=== PATIENT | female | born 1965 | race Caucasian/White ===

== ENCOUNTER 2017-08-26 08:18 | Day surgery (SDC) | payer BC, MEDICAID ==
[~2017-08-26 08:18] MED LIST: DEXTROSE 5%-1/2 NORMAL SALINE 1,000 ML IV PRN; LIDOCAINE 0.5% INJ-PF (5 MG/ML) 50 ML SDV SUBCUT PRN
[2017-08-26 09:02] LABS: ABSOLUTE BASOPHILS # (AUTO) 0.1 10^3/uL (0.0-0.2); ABSOLUTE EOSINOPHILS # (AUTO) 0.1 10^3/uL (0.0-0.6); ABSOLUTE LYMPHOCYTES (AUTO) 2.8 10^3/uL (0.5-4.7); ABSOLUTE MONOCYTES (AUTO) 0.5 10^3/uL (0.1-1.4); BASOPHILS % (AUTO) 0.6 % (0-2); EOSINOPHILS % (AUTO) 1.2 % (0-6); HEMATOCRIT 41.4 % (36.0-47.0); HEMOGLOBIN 13.7 g/dL (12.0-15.5); LYMPHOCYTES % (AUTO) 29.3 % (13-45); MEAN CORPUSCULAR HEMOGLOBIN 29.6 pg (27.0-33.4); MEAN CORPUSCULAR HGB CONC 33.1 g/dL (32.0-36.0); MEAN CORPUSCULAR VOLUME 89 fl (80-97); MONOCYTES % (AUTO) 5.2 % (3-13); PLATELET COUNT 198 10^3/uL (150-450); RED BLOOD COUNT 4.63 10^6/uL (3.72-5.28); RED CELL DISTRIBUTION WIDTH 12.5 % (11.5-14.0); SEGMENTED NEUTROPHILS % (AUTO) 63.7 % (42-78); TOTAL CELLS COUNTED % (AUTO) 100 %; WHITE BLOOD COUNT 9.5 10^3/uL (4.0-10.5)
[2017-08-26] MEDS ORDERED: DIPHENHYDRAMINE HCL 50 MG/ML VIAL IV PRN (09:42)
[2017-08-26] MEDS ORDERED: PROMETHAZINE HCL INJ 25 MG/1 ML VIAL IV PRN ×2 (09:42)
[2017-08-26] MEDS ORDERED: FENTANYL CITRATE INJ/PF 100 MCG/2 ML AMPUL IV PRN ×3 (09:42)
[2017-08-26] MEDS ORDERED: MEPERIDINE HCL/PF INJ 25 MG/1 ML DISP.SYRIN IV PRN (09:42)
[2017-08-26] MEDS ORDERED: OXYCODONE-ACETAMINOPHEN 5-325 MG TABLET PO PRN ×2 (09:42)
[2017-08-26] MEDS ORDERED: MIDAZOLAM 2 MG/2 ML INJ ONE (10:10)
[2017-08-26] MEDS ORDERED: PROPOFOL INJ 200 MG/20 ML VIAL IV ONE (10:10)
[2017-08-26] MEDS ORDERED: SIMETHICONE 80 MG TAB.CHEW PO ONE (12:00)
--- NOTE | 2017-08-26 12:07 | Operative Report ---
Operative Report DATE OF SURGERY: 08/26/17 Operative Report: The risks, benefits and alternatives of the procedure including risks of bleeding, perforation requiring surgery are explained to the patient in detail and informed consent is obtained. Patient was taken back to the operating room and placed in the left, lateral decubital position. Timeout was called. Propofol medications administered. A rectal examination is done which did not reveal any masses, tears or fissures. An Olympus videoscope is introduced into the patient's rectum. The scope was then carefully advanced all the way to the cecum. The cecum was identified by the usual anatomical landmarks including the ileocecal valve as well as the appendiceal office. Photodocumentation is obtained. The scope was then sequentially pulled back via the various segments of the colon including the ascending colon, hepatic flexure, transverse colon, splenic flexure, descending colon and finally into the rectosigmoid portions of the colon. Retroflexion maneuvers performed. PREOPERATIVE DIAGNOSIS: Colorectal cancer screening POSTOPERATIVE DIAGNOSIS: 3 polyps that are removed. First in the transverse colon removed via snare polypectomy, this is retrieved. The second is in the descending colon similar removal with snare polypectomy and retrieved. The third is in the rectum this is similarly removed and retrieved. Internal hemorrhoids OPERATION: Colonoscopy with snare polypectomy SURGEON: JAMES CARO ANESTHESIA: LMAC TISSUE REMOVED OR ALTERED: As noted above. COMPLICATIONS: None. ESTIMATED BLOOD LOSS: None. INTRAOPERATIVE FINDINGS: As noted above. PROCEDURE: Patient tolerated the procedure well. No immediate postprocedure complications are noted. Patient discharged in good condition. Discharge date 08/26/2017. Discharge diet: Regular. Discharge activity: Regular. 2-3 week follow-up to discuss findings. Patient is instructed call the office or proceed to the emergency room should there be any further problems or questions. 3 year surveillance colonoscopy.
[2017-08-26 12:46] VITALS: BP 134/82
== END 2017-08-26 12:50 | disposition home or self-care (01) ==
LOC: OROUT 08:18
PROVIDERS: ATTEND Internal Medicine Gastroenterology
DX: Z12.11 Encounter for screening for malignant neoplasm of colon (principal); D12.3 Benign neoplasm of transverse colon; D12.4 Benign neoplasm of descending colon; D12.8 Benign neoplasm of rectum; K64.8 Other hemorrhoids; Z87.891 Personal history of nicotine dependence
CPT/HCPCS: 45385; 36415; 85025; 88305 ×2; J2250; J2704; 811

== ENCOUNTER → 2019-08-01 | Outpatient (CLI) | payer SELFPAY ==
--- NOTE | 2019-08-01 13:24 | RADIOLOGY REPORT (SQ) ---
EXAM DESCRIPTION: HIPS BILATERAL IMAGES COMPLETED DATE/TIME: 08/01/2019 12:46 pm REASON FOR STUDY: BILAT HIP PAIN M54.42 LUMBAGO WITH SCIATICA, LEFT SIDE M25.552 PAIN IN LEFT HIP M25.551 PAIN IN RIGHT HIP COMPARISON: None. NUMBER OF VIEWS: Two views TECHNIQUE: AP pelvis and additional frog-leg view of both hips. LIMITATIONS: None. FINDINGS: MINERALIZATION: Normal. HIPS: No acute fracture or dislocation. No worrisome bone lesions. PELVIS AND SACRUM: No acute fracture or dislocation. No worrisome bone lesions. Mild SI joint osteo phytosis. PUBIS AND ISCHIUM: No acute fracture. LOWER LUMBAR SPINE: No acute findings as visualized. Mild spondylosis. SOFT TISSUES: Surgical chain chelsea overlie pelvis. OTHER: No other significant finding. IMPRESSION: No evidence of acute bony abnormality of the pelvis and hips. TECHNICAL DOCUMENTATION: JOB ID: [id number] 2010 [employer]- All Rights Reserved Reading location - IP/workstation name: [email or web address]
--- NOTE | 2019-08-01 14:22 | RADIOLOGY REPORT (SQ) ---
EXAM DESCRIPTION: LUMBAR SPINE COMPLETE IMAGES COMPLETED DATE/TIME: 08/01/2019 12:46 pm REASON FOR STUDY: LUMBAGO WITH SCIATICA, LEFT SIDE M54.42 LUMBAGO WITH SCIATICA, LEFT SIDE M25.552 PAIN IN LEFT HIP M25.551 PAIN IN RIGHT HIP COMPARISON: 10/15/2015 NUMBER OF VIEWS: Five views including obliques. TECHNIQUE: AP, lateral, oblique, and sacral radiographic images acquired of the lumbar spine. LIMITATIONS: None. FINDINGS: MINERALIZATION: Normal. SEGMENTATION: Normal. No transitional anatomy. ALIGNMENT: Straightening of the normal lumbar lordosis, likely positional. VERTEBRAE: Maintained height. No fracture or worrisome bone lesion. DISCS: Preserved height. No significant osteophytes or end plate irregularity. POSTERIOR ELEMENTS: Pedicles and facets are intact. No pars defect. Lower lumbar facet arthropathy. HARDWARE: None in the spine. PARASPINAL SOFT TISSUES: Normal. PELVIS: Intact as visualized. No fractures or worrisome bone lesions. SI joints intact. OTHER: No other significant finding. IMPRESSION: No evidence of acute bony abnormality of the lumbar spine. Mild lower lumbar facet arthropathy. Disc spaces are well-maintained. TECHNICAL DOCUMENTATION: JOB ID: [id number] 2010 [employer]- All Rights Reserved Reading location - IP/workstation name: [email or web address]
== END ==
LOC: OD 12:16
PROVIDERS: ATTEND Family Medicine
DX: M54.42 Lumbago with sciatica, left side (principal); M47.816 Spondylosis without myelopathy or radiculopathy, lumbar region; M25.552 Pain in left hip; M25.551 Pain in right hip
CPT/HCPCS: 72110; 73522